=== PATIENT | female | born 2005 | race Two or more races ===

== ENCOUNTER 2024-11-18 15:08 | Emergency (ER) | payer MEDICAID ==
[~2024-11-18] VITALS: Ht 152.4 cm; Wt 43.1 kg
[2024-11-18 15:17] VITALS: TEMP 97.9
[2024-11-18 18:46] VITALS: BP 130/75; O2SAT 99
== END 2024-11-18 17:00 | disposition home or self-care (01) ==
LOC: ER 15:17
DX: S61.303A Unspecified open wound of left middle finger with damage to nail, initial encounter (principal); W23.0XXA Caught, crushed, jammed, or pinched between moving objects, initial encounter; Y93.89 Activity, other specified; Y92.89 Other specified places as the place of occurrence of the external cause; Y99.8 Other external cause status

== ENCOUNTER 2025-07-08 17:18 | Emergency (ER) | payer MEDICAID ==
[~2025-07-08] VITALS: Ht 154.9 cm; Wt 54.4 kg
[2025-07-08] MEDS ORDERED: dexaMETHasone SOD PHOSPHATE 4 MG/ML VIAL IM ONE (18:30)
[2025-07-08] MEDS ORDERED: ACETAMINOPHEN ES 500 MG TABLET ONE (18:50)
[2025-07-08] MEDS: ACETAMINOPHEN ES 500 MG TABLET PO ONE (19:04)
[2025-07-08 20:04] LABS: APPEARANCE,URINE CLEAR (CLEAR); BLOOD, URINE Negative Ery/uL (NEGATIVE); LEUKOCYTE ESTERASE ,URINE Small (NEGATIVE); NITRITE, URINE NEGATIVE (NEGATIVE); UGLUCOSE Negative (NEGATIVE)
[2025-07-08 20:05] LABS: ADD URINE CULTURE YES; SQUAMOUS EPITHELIAL CELL,UR Few /HPF (None Seen)
[2025-07-08 20:06] LABS: PREGNANCY TEST URINE QUAL NEGATIVE (NEGATIVE)
[2025-07-08] MEDS ORDERED: IBUP-1490 PO (20:36)
[2025-07-08] MEDS ORDERED: NITR100C PO (20:36)
[2025-07-08] MEDS ORDERED: LIDO30AD10 TP (20:36)
[2025-07-08] MEDS ORDERED: METH-647 PO (20:36)
[2025-07-08 20:55] VITALS: BP 121/71; TEMP 98.2; O2SAT 99
== END 2025-07-08 20:56 | disposition home or self-care (01) ==
LOC: ER 17:35
DX: M54.50 Low back pain, unspecified (principal)
CPT/HCPCS: 99284; 72110; 87086; 84703; 81001; J7512